=== PATIENT | female | born 1985 | race Caucasian/White ===

== ENCOUNTER → 2017-09-28 | Day surgery (SDC) | payer OTHER ==
[~2017-09-28] MED LIST: CEFTIN250 MG PO; LEVO-T25 MCG PO; LEVSIN0.125 MG PO; PROTONIX40 MG PO; ZANTAC300 MG PO; ZOFRAN4 MG PO
== END | disposition home or self-care (01) ==
LOC: CIR.AMB 06:42
DX: O34.31 Maternal care for cervical incompetence, first trimester (principal)

== ENCOUNTER 2018-02-14 15:51 | Outpatient (CLI) | payer OTHER | END 2018-02-14 16:01 | disposition home or self-care (01) | LOC: SONOGRAMA 15:51 | DX: Z34.83 Encounter for supervision of other normal pregnancy, third trimester (principal) ==

== ENCOUNTER 2018-03-07 14:15 | Inpatient (IN) | payer OTHER ==
[~2018-03-07] VITALS: Ht 162.6 cm; Wt 150.0 kg
[2018-04-03] MEDS ORDERED: PRENATABS RX T1 EACH PO (08:20)
== END 2018-04-05 14:12 | disposition home or self-care (01) | DRG 768 ==
LOC: LDR 04-03 07:35 → OB/GYN 04-03 07:35 → LDR 04-03 08:02 → OB/GYN 04-03 19:08
PROC: 10E0XZZ Delivery of Products of Conception, External Approach (ICD-10-PCS; principal; 2018-04-03)
PROC: 0DQR0ZZ Repair Anal Sphincter, Open Approach (ICD-10-PCS; 2018-04-03)
PROC: 0W8NXZZ Division of Female Perineum, External Approach (ICD-10-PCS; 2018-04-03)
PROC: 4A1HXCZ Monitoring of Products of Conception, Cardiac Rate, External Approach (ICD-10-PCS; 2018-04-03)
PROC: 4A033R1 Measurement of Arterial Saturation, Peripheral, Percutaneous Approach (ICD-10-PCS; 2018-04-03)
DX: O70.20 Third degree perineal laceration during delivery, unspecified (principal); Z37.0 Single live birth; Z3A.40 40 weeks gestation of pregnancy; Z22.330 Carrier of Group B streptococcus